=== PATIENT | male | born 1940 | race Hispanic/Latino ===

== ENCOUNTER 2019-04-19 09:49 | Emergency (ER) | payer MEDICARE, OTHER ==
[~2019-04-19] VITALS: Ht 160 cm; Wt 77.1 kg
[~2019-04-19 09:49] MED LIST: FAMOTIDINE20 MG PO; GLIMEPIRIDE2 MG PO; METFORMIN HCL500 MG PO; METRONIDAZOLE500 MG PO; PENTOXIFYLLINE400 MG PO; SIMVASTATIN40 MG PO; TAMSULOSIN HCL0.4 MG PO; ULTRAM 50MG50 MG PO
[2019-04-19] MEDS ORDERED: PANTOPRAZOLE 40 MG 10ML VIAL IV STA (10:40)
[2019-04-19] MEDS ORDERED: SODIUM CHLORIDE 0.9% 1000ML 1,000 ML IV STA (10:40)
[2019-04-19 11:46] LABS: BASOPHILS # (AUTO) 0.1 (0.0-0.1); BASOPHILS % 0.5 % (0.0-1.0); EOSINOPHILS # (AUTO) 0.1 (0.0-0.4); EOSINOPHILS % 1.1 % (0.0-6.0); HEMATOCRIT 46.7 % (38.2-49.6); HEMOGLOBIN 16.1 g/dL (14.0-18.0); LYMPHOCYTES % 19.2 % (18.0-39.1); MEAN CORPUSCULAR HEMOGLOBIN 29.7 pg (28-32); MEAN CORPUSCULAR HGB CONC 34.5 g/dL (31-35); MEAN CORPUSCULAR VOLUME 86.2 fL (81-99); MONOCYTES # (AUTO) 0.8 (0.2-0.8); MONOCYTES % 7.6 % (4.4-11.3); NEUTROPHILS # (AUTO) 7.4 (2.1-6.9); PLATELET COUNT 242 x10e3/uL (140-360); RED BLOOD COUNT 5.42 x10e6/uL (4.3-5.7); RED CELL DISTRIBUTION WIDTH 14.3 % (11.7-14.4)
[2019-04-19 12:12] LABS: BILIRUBIN,URINE NEGATIVE (NEGATIVE); CLARITY,URINE CLOUDY (CLEAR); COLOR,URINE YELLOW (YELLOW); KETONES,URINE NEGATIVE (NEGATIVE); LEUKOCYTE ESTERASE ,URINE SMALL (NEGATIVE); NITRITE,URINE POSITIVE (NEGATIVE); PROTEIN,URINE DIPSTICK 1+ (NEGATIVE); URINE UROBILINOGEN 1 mg/dL (0.2 - 1)
[2019-04-19 12:15] LABS: ALANINE AMINOTRANSFERASE 12 IU/L (0-55); ALBUMIN 3.8 g/dL (3.5-5.0); ALBUMIN/GLOBULIN RATIO 0.9 (0.8-2.0); ALKALINE PHOSPHATASE 84 IU/L (40-150); BLOOD UREA NITROGEN 10 mg/dL (7-26); BUN/CREATININE RATIO 13 (6-25); CALCIUM 9.9 mg/dL (8.4-10.2); CARBON DIOXIDE 25 mmol/L (22-29); CHLORIDE 100 mmol/L (98-107); CREATINE KINASE 46 IU/L (30-200); CREATININE, SERUM 0.79 mg/dL (0.72-1.25); EST GLOMERULAR FILTRATION RATE > 60 ML/MIN (60-); GLUCOSE 136 mg/dL (74-118); LIPASE 51 U/L (8-78); SODIUM 134 mmol/L (136-145)
[2019-04-19 12:30] LABS: BACTERIA,URINE MANY /HPF; EPITHELIAL CELLS,URINE MANY /LPF; WBC,URINE (MAN) >50 /HPF (0-5)
--- NOTE | 2019-04-19 13:53 | Diagnostic Imaging Report ---
EXAM: CT Abdomen and Pelvis WITH intravenous contrast INDICATION: Abdominal pain COMPARISON: None. TECHNIQUE: Abdomen and pelvis were scanned utilizing a multidetector helical scanner from the lung base to the pubic symphysis after administration of IV contrast. Coronal and sagittal reformations were obtained. Routine protocol was performed. Scan was performed during portal venous phase. IV CONTRAST: 100mL of Isovue 370 ORAL CONTRAST: Water RADIATION DOSE: Total DLP: 527.6 mGy*cm Dose modulation, iterative reconstruction, and/or weight based adjustment of the mA/kV was utilized to reduce the radiation dose to as low as reasonably achievable. FINDINGS: LOWER THORAX: Mitral annular calcifications and minimal scattered coronary artery calcifications. No focal lung base consolidation. HEPATOBILIARY: Diffuse hepatic steatosis. No focal liver lesions. No biliary ductal dilation. Unremarkable gallbladder. SPLEEN: No splenomegaly. PANCREAS: No focal masses or ductal dilatation. ADRENALS: No adrenal nodules. KIDNEYS/URETERS: Multiple simple cysts of both kidneys, measuring up to 6.7 cm on the left and 1.7 cm on the right. No renal calculi or hydronephrosis. No solid mass lesions. PELVIC ORGANS/BLADDER: Unremarkable. PERITONEUM / RETROPERITONEUM: No free air or fluid. LYMPH NODES: No lymphadenopathy. VESSELS: Scattered atherosclerotic calcifications of the nonaneurysmal abdominal aorta and major branches. GI TRACT: Wall thickening of the cecum and proximal ascending colon in the facility of several diverticuli. No significant pericolonic inflammatory changes. No free air. No fluid collection. Descending and sigmoid diverticulosis. Postoperative changes of prior anastomosis at the sigmoid colon. BONES AND SOFT TISSUES: No acute osseous injury. Grade 1 anterolisthesis at L4-5. Mild degenerative changes of the visualized spine. No suspicious lytic or blastic lesions. IMPRESSION: Cecal and proximal ascending colon wall thickening in the vicinity of several ascending colon diverticuli. Given the reported chronicity of symptoms and absence of pericolonic inflammatory changes, colonoscopy is recommended to assess for underlying mass lesion. Hepatic steatosis. Signed by: Ann Haji MD on 04/19/2019 1:49 PM
[2019-04-19] MEDS ORDERED: CEFTRIAXONE SOD 1 GM/NS 50 ML 50 ML IV ONE (14:30)
[2019-04-19 14:53] VITALS: BP 153/80
[2019-04-19] MEDS ORDERED: IOPAMIDOL 370 MG/ML 200 ML INFUS..BTL INJ ONE (22:50)
[2019-04-19] MEDS ORDERED: SODIUM CHLORIDE 0.9% 50ML 50 ML ONE (22:50)
== END 2019-04-19 15:11 | disposition home or self-care (01) ==
LOC: ER 09:49
DX: N30.00 Acute cystitis without hematuria (principal); I10 Essential (primary) hypertension; E11.9 Type 2 diabetes mellitus without complications; Z83.3 Family history of diabetes mellitus; Z82.49 Family history of ischemic heart disease and other diseases of the circulatory system; K63.89 Other specified diseases of intestine
CPT/HCPCS: 36415; 74177; 80053; 81001; 82550; 82553; 83690; 84484; 85025; 99284; C9113; J0696; J7030; Q9967

== ENCOUNTER 2020-01-17 18:37 | Observation (INO) | payer MEDICARE, OTHER ==
[~2020-01-17] VITALS: Ht 160 cm; Wt 77.1 kg
--- NOTE | 2020-01-17 19:55 | Emergency Department Note ---
History of Present Illnes History of Present Illness Chief Complaint: Abdominal Complaints History of Present Illness This is a 79 year old male SLIGHTLY BLOODY STOOL SINCE 10 AM THIS MORNING WHEN HE GOES TO THE BATHROOM, STATES HAS HAD THIS PROBLEM CHRONICALLY FOR OVER 5 YRS. STATES THAT HIS GI DOCTOR IS ROHIT. REPORTS SEEING GI 3 MONTHS AGO. states 10 episodes of blood in stool today, Historian: Patient Arrival Mode: Car Onset (how long ago): hour(s) (7) Location: rectal Quality: bleeding Radiation: Reports non-radiation Severity: mild Onset quality: sudden Duration (how long): hour(s) (7) Timing of current episode: intermittent Progression: waxing and waning Chronicity: recurrent Context: Denies recent illness, Denies recent surgery Relieving factors: none Exacerbating factors: none Associated symptoms: Reports denies other symptoms Treatments prior to arrival: none Past Medical/Family History Physician Review I have reviewed the patient's past medical and family history. Any updates have been documented here. Past Medical History Recent Fever: No Clinical Suspicion of Infectio: No New/Unexplained Change in Ment: No Past Medical History: Hypertension, Diabetes, Hyperlipedemia Other Surgery: PROSTATE SX Social History Smoking Cessation: Never Smoker Counseling Performed: No Alcohol Use: None Any Illegal Drug Use: No TB Exposure/Symptoms: No Physically hurt or threatened: No Other Last Tetanus: UNKNOWN Any Pre-Existing Lines (PICC,: No Is patient up to date on immun: Yes Last Flu: UTD Last Pneumovax: DENIES Review of Systems Review of Systems Constitutional: Reports no symptoms EENTM: Reports no symptoms Cardiovascular: Reports no symptoms Respiratory: Reports no symptoms Gastrointestinal: Reports as per HPI Genitourinary: Reports no symptoms Musculoskeletal: Reports no symptoms Integumentary: Reports no symptoms Neurological: Reports no symptoms Psychological: Reports no symptoms Endocrine: Reports no symptoms Hematological/Lymphatic: Reports no symptoms Physical Exam Related Data Allergies: Coded Allergies: No Known Allergies (Unverified , 04/19/19) Triage Vital Signs Vital Signs Date Time Temp Pulse Resp B/P (MAP) Pulse Ox O2 Delivery O2 Flow Rate FiO2 01/17/20 19:33 98.0 79 16 119/70 99 Vital signs reviewed: Yes Physical Exam CONSTITUTIONAL Constitutional: Present well-developed, Present well-nourished HENT HENT: Present normocephalic, Present atraumatic, Present oropharynx clear/moist, Present nose normal HENT L/R: Present left ext ear normal, Present right ext ear normal EYES Eyes: Reports PERRL, Reports conjunctivae normal NECK Neck: Present ROM normal PULMONARY Pulmonary: Present effort normal, Present breath sounds normal CARDIOVASCULAR Cardiovascular: Present regular rhythm, Present heart sounds normal, Present capillary refill normal, Present normal rate GASTROINTESTINAL Abdominal: Present soft, Present nontender, Present bowel sounds normal GENITOURINARY Genitourinary: Present exam deferred SKIN Skin: Present warm, Present dry MUSCULOSKELETAL Musculoskeletal: Present ROM normal NEUROLOGICAL Neurological: Present alert, Present oriented x 3, Present no gross motor or sensory deficits PSYCHOLOGICAL Psychological: Present mood/affect normal, Present judgement normal Results Laboratory Laboratory Laboratory Tests Test 01/17/20 22:07 01/17/20 19:00 Hemoglobin 12.7 g/dL (14.0-18.0) 14.2 g/dL (14.0-18.0) Hematocrit 38.9 % (38.2-49.6) 43.5 % (38.2-49.6) White Blood Count 10.56 x10e3/uL (4.8-10.8) Red Blood Count 4.75 x10e6/uL (4.3-5.7) Mean Corpuscular Volume 91.6 fL (81-99) Mean Corpuscular Hemoglobin 29.9 pg (28-32) Mean Corpuscular Hemoglobin Concent 32.6 g/dL (31-35) Red Cell Distribution Width 14.4 % (11.7-14.4) Platelet Count 275 x10e3/uL (140-360) Neutrophils (%) (Auto) 61.7 % (38.7-80.0) Lymphocytes (%) (Auto) 26.0 % (18.0-39.1) Monocytes (%) (Auto) 8.4 % (4.4-11.3) Eosinophils (%) (Auto) 2.8 % (0.0-6.0) Basophils (%) (Auto) 0.7 % (0.0-1.0) Neutrophils # (Auto) 6.5 (2.1-6.9) Lymphocytes # (Auto) 2.8 (1.0-3.2) Monocytes # (Auto) 0.9 (0.2-0.8) Eosinophils # (Auto) 0.3 (0.0-0.4) Basophils # (Auto) 0.1 (0.0-0.1) Absolute Immature Granulocyte (auto 0.04 x10e3/uL (0-0.1) Prothrombin Time 13.0 seconds (11.9-14.5) Prothromb Time International Ratio 0.93 Activated Partial Thromboplast Time 31.5 seconds (23.8-35.5) Sodium Level 136 mmol/L (136-145) Potassium Level 4.5 mmol/L (3.5-5.1) Chloride Level 103 mmol/L (98-107) Carbon Dioxide Level 24 mmol/L (22-29) Anion Gap 13.5 mmol/L (8-16) Blood Urea Nitrogen 22 mg/dL (7-26) Creatinine 0.76 mg/dL (0.72-1.25) Estimat Glomerular Filtration Rate > 60 ML/MIN (60-) BUN/Creatinine Ratio 29 (6-25) Glucose Level 112 mg/dL (74-118) Calcium Level 9.1 mg/dL (8.4-10.2) Total Bilirubin 0.3 mg/dL (0.2-1.2) Aspartate Amino Transf (AST/SGOT) 16 IU/L (5-34) Alanine Aminotransferase (ALT/SGPT) 13 IU/L (0-55) Alkaline Phosphatase 60 IU/L (40-150) Total Protein 7.0 g/dL (6.5-8.1) Albumin 4.0 g/dL (3.5-5.0) Globulin 3.0 g/dL (2.3-3.5) Albumin/Globulin Ratio 1.3 (0.8-2.0) Lab results reviewed: Yes Imaging Imaging results reviewed: Yes Impressions cr brain IMPRESSION: 1. No acute intracranial abnormalities. 2. Mild supratentorial chronic microvascular ischemic change. 3. Generalized cerebral volume loss. 4. 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 Signed by: Dr. Kieran Ramirez M.D. on 01/17/2020 10:52 PM Procedures 12 Lead ECG Interpretation ECG Interpretation : ECG: ECG 1 Status Controller: Interpreted by ED physician Date: Jan 17, 2020 Time: 22:04 Rhythm: sinus rhythm Rate: normal BPM: 68 QRS axis: left ST segments normal: No (early repolarization ) T waves normal: Yes Other findings: no other findings, early repolarization Clinical Impression: abnormal ECG Assessment & Plan Medical Decision Making MDM pt with rectal bleeding, no abd pain cbc, cmp, type and screen, pt/ptt ordered to eval for anemia, coagulopathy, electrolyte abnormality pt was in bathroom and passed out while having a bm, there is gross red blood in bm, pt has small contusion to head, ct brain ordered i spoke with dr brenner admit inpatient, i have placed a consult to dr katz gastroenterology Assessment & Plan Final Impression: (1) Lower GI bleed (2) Vasovagal syncope (3) Head contusion Depart Disposition: ADMITTED Last Vital Signs Date Time Temp Pulse Resp B/P (MAP) Pulse Ox O2 Delivery O2 Flow Rate FiO2 01/17/20 19:33 98.0 79 16 119/70 99 Home Meds Reported Medications Tramadol Hcl* (ULTRAM 50MG*) 50 Mg Tab, 50 MG PO BID, TAB 02/27/17 Tamsulosin Hcl (TAMSULOSIN HCL) 0.4 Mg Cap.er.24h, 0.4 MG PO DAILY 02/27/17 Simvastatin (SIMVASTATIN) 40 Mg Tablet, 40 MG PO 2100, #30 TAB 02/27/17 Pentoxifylline (PENTOXIFYLLINE) 400 Mg Tablet.er, 400 MG PO DAILY, #30 TAB 02/27/17 Metronidazole (METRONIDAZOLE) 500 Mg Tablet, 500 MG PO DAILY, TAB 02/27/17 Metformin Hcl (METFORMIN HCL) 500 Mg Tablet, 500 MG PO BID, #60 TAB 02/27/17 Glimepiride (GLIMEPIRIDE) 2 Mg Tablet, 2 MG PO TID, TAB 02/27/17 Famotidine (FAMOTIDINE) 20 Mg Tab, 40 MG PO DAILY, #30 TAB 02/27/17 SUHAIL KAISER MD Jan 17, 2020 19:54
[2020-01-17 20:01] LABS: BASOPHILS # (AUTO) 0.1 (0.0-0.1); BASOPHILS % 0.7 % (0.0-1.0); EOSINOPHILS # (AUTO) 0.3 (0.0-0.4); EOSINOPHILS % 2.8 % (0.0-6.0); HEMATOCRIT 43.5 % (38.2-49.6); HEMOGLOBIN 14.2 g/dL (14.0-18.0); LYMPHOCYTES # (AUTO) 2.8 (1.0-3.2); MEAN CORPUSCULAR HEMOGLOBIN 29.9 pg (28-32); MEAN CORPUSCULAR HGB CONC 32.6 g/dL (31-35); MEAN CORPUSCULAR VOLUME 91.6 fL (81-99); MONOCYTES # (AUTO) 0.9 (0.2-0.8); MONOCYTES % 8.4 % (4.4-11.3); NEUTROPHILS # (AUTO) 6.5 (2.1-6.9); NEUTROPHILS % 61.7 % (38.7-80.0); PLATELET COUNT 275 x10e3/uL (140-360); RED BLOOD COUNT 4.75 x10e6/uL (4.3-5.7); RED CELL DISTRIBUTION WIDTH 14.4 % (11.7-14.4)
[2020-01-17 20:06] LABS: INR 0.93
[2020-01-17 20:07] LABS: PARTIAL THROMBOPLASTIN TIME 31.5 seconds (23.8-35.5)
[2020-01-17 20:15] LABS: ALANINE AMINOTRANSFERASE 13 IU/L (0-55); ALBUMIN/GLOBULIN RATIO 1.3 (0.8-2.0); ALKALINE PHOSPHATASE 60 IU/L (40-150); ANION GAP 13.5 mmol/L (8-16); BLOOD UREA NITROGEN 22 mg/dL (7-26); BUN/CREATININE RATIO 29 (6-25); CALCIUM 9.1 mg/dL (8.4-10.2); CARBON DIOXIDE 24 mmol/L (22-29); CHLORIDE 103 mmol/L (98-107); CREATININE, SERUM 0.76 mg/dL (0.72-1.25); EST GLOMERULAR FILTRATION RATE > 60 ML/MIN (60-); GLUCOSE 112 mg/dL (74-118); POTASSIUM 4.5 mmol/L (3.5-5.1); SODIUM 136 mmol/L (136-145)
[2020-01-17] MEDS ORDERED: PANTOPRAZOLE 40 MG 10ML VIAL IV STA (21:53)
--- NOTE | 2020-01-17 22:10 | NUR ---
PATIENT RECIEVED FROM WAITING ROOM, PATIENT HAD UNWITNESSED SYNCOPIAL EPISODE IN RESTROOM, DR KAISER IN ROOM AND ADDING ADDITIONAL MEDICAL INTERVENTIONS
--- NOTE | 2020-01-17 22:14 | NUR ---
EKG DONE AND HANDED TO DR KAISER IN PERSON, REPEAT CBC AND THIRD PINK TOP WERE DRAWN FOR PATIENT BLOOD TYPE AND CROSS
--- NOTE | 2020-01-17 22:17 | NUR ---
PATIENT HAD BLOODY STOOL ALONG WITH CLOTS, MELENA, DR KAISER INFORMED AND WE TALKED ABOUT FURTHER RECOMMENDATIONS FOR MEDICAL INTERVENTION, DR KAISER ORDERED PROTONIX IV PUSH
--- NOTE | 2020-01-17 22:56 | Diagnostic Imaging Report ---
CT BRAIN WO HISTORY: Fall COMPARISON: None. Technique: Noncontrast axial scans were obtained from skull base to the vertex. Coronal and sagittal reconstructions obtained from the axial data. One or more of the following dose reduction techniques were used: Automated exposure control, adjustment of the mA and/or kV according to patient size, and/or utilization of iterative reconstruction technique. Beam hardening artifacts obscure some details. DISCUSSION: Scalp/Skull: Unremarkable. Brain sulci: Mildly prominent. Ventricles: Compensatory dilatation. Extra-axial spaces: No masses or fluid collections. Carotid and vertebral artery calcifications are present. Parenchyma: Mild bilateral deep white matter hypodensity is likely chronic microvascular ischemic change. There is a subtle old small cortical infarct in the right superior cerebellum. Otherwise, no masses, hemorrhage, or large vascular territory acute infarct. Dural sinuses: No abnormal densities. Sellar/Suprasellar region: Intact. Skull base: Intact. Incidental findings: Right ocular lens replacement. IMPRESSION: 1. No acute intracranial abnormalities. 2. Mild supratentorial chronic microvascular ischemic change. 3. Generalized cerebral volume loss. 4. 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 Signed by: Dr. Kieran Ramirez M.D. on 01/17/2020 10:52 PM
[2020-01-17 23:05] LABS: HEMATOCRIT 38.9 % (38.2-49.6); HEMOGLOBIN 12.7 g/dL (14.0-18.0)
[2020-01-17] MEDS ORDERED: DEXTROSE 50% SYRINGE 50 ML IV PRN (23:45)
[2020-01-17] MEDS ORDERED: SODIUM CHLORIDE 0.9% 1000ML 1,000 ML IV SCH (23:45)
[2020-01-18] VITALS (9 sets, daily range): BP systolic 120–129; BP diastolic 54–82
--- NOTE | 2020-01-18 01:00 | NUR ---
Received patient from ED. Patient is alert and verbal. No complain of pain at this time. Patient cannot remember home medications. Will call family member in AM. IV to right and left AC intact. Tele number [phone] Patient has abrasion in his forehead states it is old. Bed locked. Side rails up. Bed alarm on.
--- NOTE | 2020-01-18 02:02 | NUR ---
ED NURSE TRACI STATES PATIENT'S ABRASIONS ON THE FOREHEAD WERE FROM THE FALL AT ED.
--- NOTE | 2020-01-18 02:15 | NUR ---
NURSE TRACI GAVE RN PATIENT'S HOME MEDICATION CONTAINERS
--- NOTE | 2020-01-18 02:28 | NUR ---
PATIENT IS OFF THE UNIT FOR GI BLEED TEST IN [email or web address].
[2020-01-18] MEDS ORDERED: SIMVASTATIN40 MG PO (02:40)
[2020-01-18] MEDS ORDERED: AMLODIPINE BESY10 MG PO (02:41)
[2020-01-18] MEDS ORDERED: METFORMIN HCL500 MG PO (02:42)
--- NOTE | 2020-01-18 04:06 | NUR ---
PATIENT IS BACK FROM [facility]. ASSISTED TO BED. BED ALARM ON.
--- NOTE | 2020-01-18 04:35 | Diagnostic Imaging Report ---
Tagged-RBC GI Bleed Study Clinical information: 79-year-old female with grossly bloody stool.. Discussion: The patient's own red blood cells were labeled with 27 mCi of technetium-99m pertechnetate using the in vitro method (UltraTag). Dynamic images of the abdomen were obtained through 60 minutes. Distribution of tracer activity appears physiologic throughout the abdomen. No abnormal accumulation of tracer is seen within the gastrointestinal lumen. Impression: No scan evidence of active gastrointestinal bleeding at this time. Signed by: Dr. Sharron Rogers M.D. on 01/18/2020 4:31 AM
[2020-01-18 04:38] LABS: BACTERIA,URINE MODERATE /HPF; EPITHELIAL CELLS,URINE FEW /LPF
[2020-01-18 04:39] LABS: BILIRUBIN,URINE NEGATIVE (NEGATIVE); CLARITY,URINE CLEAR (CLEAR); COLOR,URINE YELLOW (YELLOW); KETONES,URINE 1+ (NEGATIVE); LEUKOCYTE ESTERASE ,URINE NEGATIVE (NEGATIVE); MUCUS,URINE MANY (RARE); NITRITE,URINE NEGATIVE (NEGATIVE); PROTEIN,URINE DIPSTICK NEGATIVE (NEGATIVE); URINE UROBILINOGEN 0.2 mg/dL (0.2 - 1)
--- NOTE | 2020-01-18 04:50 | NUR ---
Spoke with Prior Authorization Nurse regarding patient due HH. States she doesn't have the label at this time. She will check from the lab and draw blood as ordered.
[2020-01-18 07:07] LABS: HEMATOCRIT 36.3 % (38.2-49.6)
[2020-01-18] MEDS ORDERED: INSULIN REGULAR, HUMAN 100 UNIT/1 ML 3ML VIAL SQ SCH (07:30)
[2020-01-18] MEDS: PANTOPRAZOLE 40 MG 10ML VIAL IV SCH (09:36)
[2020-01-18] MEDS ORDERED: ONDANSETRON HCL INJ 2MG/ML 2ML 2 MG/ML VIAL IV PRN (09:45)
[2020-01-18] MEDS ORDERED: ACETAMINOPHEN 325 MG TAB PO PRN (09:45)
[2020-01-18] MEDS ORDERED: DEXTROSE 50% SYRINGE 50 ML IV PRN (09:45)
--- NOTE | 2020-01-18 10:11 | History and Physical ---
GENERAL OPHTHALMOLOGIST: Simeon Cee MD. CHIEF COMPLAINT: Rectal bleed. HISTORY OF PRESENT ILLNESS: This is a 79-year-old male, who came in with bloody stool, slightly bloody. The patient came to the hospital emergency room for evaluation. No significant drop of his hemoglobin or hematocrit. The patient does have history of diverticular disease. He has rectal bleed for quite some time. Had multiple endoscopies in the past. The patient is otherwise stable. PAST MEDICAL HISTORY: Hypertension, diabetes type 2, dyslipidemia, diverticular disease, and enlarged prostate. PAST SURGICAL HISTORY: Multiple endoscopy, colonoscopy and prostate surgery. SOCIAL HISTORY: The patient does not smoke or use alcohol. No regular drug. ALLERGIES: NO KNOWN ALLERGIES. HOME MEDICATIONS: The patient is on: 1. Norvasc. 2. Metformin. 3. Simvastatin. PHYSICAL EXAMINATION: VITAL SIGNS: Temperature is 98, blood pressure 124/66, pulse rate is 82, respirations 18. HEENT: Normocephalic and atraumatic. Pupils reactive. Anicteric. NECK: Supple grossly. PULMONARY: Clear. CARDIOVASCULAR: Regular rhythm. ABDOMEN: Soft and unremarkable. EXTREMITIES: No cyanosis or edema. NEUROLOGIC: No focal deficit. LABORATORY DATA: Sodium is 136, potassium 4.5, chloride 103, bicarb 24, BUN 22, creatinine 0.7 glucose 112. WBC is 10.5, hemoglobin 12, hematocrit 36, platelets 275. PT is 13, INR is 0.93. AST 16, ALT 13, alkaline phosphatase is 60, and total bilirubin 0.3. IMPRESSION: 1. Rectal bleed, most likely secondary to diverticular disease. 2. No abdominal pain. 3. Baseline hypertension. 4. Dyslipidemia. 5. Diabetes type 2, mild. PLAN: Resume some home medication. Protonix. The patient had a negative bleeding scan. We will obtain a CT abdomen and pelvis with contrast. Continue to monitor the patient closely. Get a CBC later on today. MD CHIDI Schwarz/MODL /[id number]
--- NOTE | 2020-01-18 11:04 | NUR ---
GASTROENTEROLOGY CONSULTATION REASON FOR CONSULT - RECTAL BLEED CONSULT REQUESTED BY- Dr. Goetz CHIEF COMPLAINT: Rectal bleed. HISTORY OF PRESENT ILLNESS: Patient is a 79-year-old male, who came in with bloody stool - reports bright red rectal bleeding that started about 2 days ago. The patient does have history of diverticular disease per many previous colonoscopies in the past. Patient reports of having some abd pain, denies any nausea, vomiting or hematemesis. Denies any fevers, chill, sob. ROS: all other systems negative unless mentioned above PAST MEDICAL HISTORY: Hypertension, diabetes type 2, dyslipidemia, diverticular disease PAST SURGICAL HISTORY: Multiple EGDs and colonoscopies and prostate surgery. SOCIAL HISTORY: The patient denies any smoking or alcohol use. Denies recreational drug use. ALLERGIES: NKDA HOME MEDICATIONS: 1. Norvasc. 2. Metformin. 3. Simvastatin. PHYSICAL EXAMINATION: VITAL SIGNS: Temperature is 98, blood pressure 124/66, pulse rate is 82, respirations 18. HEENT: Normocephalic and atraumatic. Pupils reactive. Anicteric. NECK: Supple grossly. PULMONARY: Clear. CARDIOVASCULAR: Regular rate and rhythm. ABDOMEN: Soft and unremarkable Bowel sounds active. EXTREMITIES: No cyanosis or edema. NEUROLOGIC: No focal deficit. LABORATORY DATA: Sodium is 136, potassium 4.5, chloride 103, bicarb 24, BUN 22, creatinine 0.7 glucose 112. WBC is 10.5, hemoglobin 12, hematocrit 36, platelets 275. PT is 13, INR is 0.93. AST 16, ALT 13, alkaline phosphatase is 60, and total bilirubin 0.3. IMPRESSION: 1. Rectal bleed - likely diverticular in nature - bleed scan negative 2. History of diverticular bleeds in the past PLAN: - Patient has been started on PPI - Plans for colonoscopy tomorrow w/Dr. Kevin. Prep started. Clear liquid. NPO after midnight. - Monitor H/H. The above plan has been discussed w/Dr. Kevin.
--- NOTE | 2020-01-18 11:23 | Diagnostic Imaging Report ---
EXAMINATION: LOWER LEG RIGHT INDICATION: Fall COMPARISON: None FINDINGS: 4 views of the tibia and fibula demonstrate no acute fracture or dislocation. Alignment is anatomic. Mild right knee degenerative changes. No substantial knee or ankle joint effusions. Bony proliferative changes of the patella. Soft tissues appear unremarkable. IMPRESSION: No acute osseous injury. Signed by: Ann Haji MD on 01/18/2020 11:19 AM
[2020-01-18] MEDS: INSULIN LISPRO 100 UNIT/1 ML 3ML VIAL SQ SCH ×3 (11:30→20:20)
--- NOTE | 2020-01-18 11:43 | Diagnostic Imaging Report ---
EXAM: CT Abdomen and Pelvis WITH intravenous contrast INDICATION: Rectal bleeding COMPARISON: CT abdomen and pelvis of 04/19/2019 TECHNIQUE: Abdomen and pelvis were scanned utilizing a multidetector helical scanner from the lung base to the pubic symphysis after administration of IV contrast. Coronal and sagittal reformations were obtained. Routine protocol was performed. Scan was performed during portal venous phase. IV CONTRAST: 100mL of Isovue 370 ORAL CONTRAST: None RADIATION DOSE: Total DLP: 683 mGy*cm Dose modulation, iterative reconstruction, and/or weight based adjustment of the mA/kV was utilized to reduce the radiation dose to as low as reasonably achievable. FINDINGS: LOWER THORAX: Mitral annular calcifications. No lung base consolidation. HEPATOBILIARY: Diffuse hepatic steatosis. No focal liver lesion. No biliary ductal dilation. Unremarkable gallbladder. SPLEEN: No splenomegaly. PANCREAS: No focal masses or ductal dilatation. ADRENALS: No adrenal nodules. KIDNEYS/URETERS: Bilateral simple appearing renal cysts measure up to 6.9 cm at the left lower pole and 1.8 cm at the right lower pole. No hydronephrosis or renal calculi. PELVIC ORGANS/BLADDER: Unremarkable. PERITONEUM / RETROPERITONEUM: No free air or fluid. LYMPH NODES: No lymphadenopathy. VESSELS: Moderate atherosclerotic calcifications of the nonaneurysmal abdominal aorta and major branches. GI TRACT: Surgical anastomosis at the sigmoid colon. Diverticulosis without CT evidence of diverticulitis. No abnormal bowel thickening. No bowel obstruction. Normal appendix. BONES AND SOFT TISSUES: No acute osseous injury. No suspicious lytic or blastic lesions. IMPRESSION: Diverticulosis without CT evidence of diverticulitis. Diffuse hepatic steatosis. Signed by: Ann Haji MD on 01/18/2020 11:40 AM
[2020-01-18] MEDS: LEVOFLOXACIN 500 MG TAB PO SCH (12:10)
[2020-01-18] MEDS ORDERED: PEG (High)/E-LYTE SOLN 4,000 ML BTL PO ONE (12:15)
[2020-01-18] MEDS ORDERED: TAMSULOSIN HCL 0.4 MG CAP PO ONE (12:15)
[2020-01-18] MEDS ORDERED: SODIUM CHLORIDE 0.9% 50ML 50 ML ONE (12:20)
[2020-01-18] MEDS ORDERED: IOPAMIDOL 370 MG/ML 200 ML INFUS..BTL INJ ONE (12:20)
[2020-01-18 14:52] LABS: BASOPHILS # (AUTO) 0.1 (0.0-0.1); BASOPHILS % 0.5 % (0.0-1.0); EOSINOPHILS # (AUTO) 0.1 (0.0-0.4); EOSINOPHILS % 1.1 % (0.0-6.0); HEMOGLOBIN 11.5 g/dL (14.0-18.0); LYMPHOCYTES # (AUTO) 1.9 (1.0-3.2); LYMPHOCYTES % 20.3 % (18.0-39.1); MEAN CORPUSCULAR HEMOGLOBIN 29.5 pg (28-32); MEAN CORPUSCULAR HGB CONC 32.9 g/dL (31-35); MEAN CORPUSCULAR VOLUME 89.7 fL (81-99); MONOCYTES # (AUTO) 0.8 (0.2-0.8); NEUTROPHILS # (AUTO) 6.3 (2.1-6.9); NEUTROPHILS % 68.7 % (38.7-80.0); PLATELET COUNT 227 x10e3/uL (140-360); RED CELL DISTRIBUTION WIDTH 14.5 % (11.7-14.4)
--- NOTE | 2020-01-18 18:10 | NUR ---
aware of bright red blood noted in stool.
--- NOTE | 2020-01-18 19:14 | NUR ---
Report given to oncoming nurse of patient's status. Sitting on recliner [id number] to time, person, place, situation. Respirations even and unlabored. Call light within reach.
[2020-01-18] MEDS: TAMSULOSIN HCL 0.4 MG CAP PO SCH (20:24)
--- NOTE | 2020-01-18 20:24 | NUR ---
PATIENT REFUSED TO GO TO BED WANTS TO SIT ON THE RECLINER. REFUSED BED ALARM ON WHEN IN BED. RISK EXPLAINED. PATIENT STILL REFUSED.
[2020-01-19] VITALS (8 sets, daily range): BP systolic 104–137; BP diastolic 52–73
--- NOTE | 2020-01-19 00:39 | NUR ---
PATIENT IS STILL NOT CLEAR. PATIENT CAN NOT DRINK ALL THE COLYTE. INSTRUCTIONS GIVEN TO BE NPO AT THIS TIME.
--- NOTE | 2020-01-19 05:00 | NUR ---
PATIENT REFUSED BATH X2.
[2020-01-19 05:58] LABS: BASOPHILS % 0.5 % (0.0-1.0); EOSINOPHILS # (AUTO) 0.1 (0.0-0.4); EOSINOPHILS % 0.8 % (0.0-6.0); HEMATOCRIT 27.2 % (38.2-49.6); HEMOGLOBIN 9.3 g/dL (14.0-18.0); LYMPHOCYTES # (AUTO) 1.3 (1.0-3.2); LYMPHOCYTES % 19.6 % (18.0-39.1); MEAN CORPUSCULAR HEMOGLOBIN 30.7 pg (28-32); MEAN CORPUSCULAR HGB CONC 34.2 g/dL (31-35); MEAN CORPUSCULAR VOLUME 89.8 fL (81-99); MONOCYTES # (AUTO) 0.6 (0.2-0.8); MONOCYTES % 9.8 % (4.4-11.3); NEUTROPHILS # (AUTO) 4.4 (2.1-6.9); PLATELET COUNT 199 x10e3/uL (140-360); RED BLOOD COUNT 3.03 x10e6/uL (4.3-5.7); RED CELL DISTRIBUTION WIDTH 14.3 % (11.7-14.4)
[2020-01-19 06:21] LABS: ANION GAP 10.7 mmol/L (8-16); BLOOD UREA NITROGEN 13 mg/dL (7-26); BUN/CREATININE RATIO 19 (6-25); CARBON DIOXIDE 27 mmol/L (22-29); CHLORIDE 104 mmol/L (98-107); CREATININE, SERUM 0.67 mg/dL (0.72-1.25); EST GLOMERULAR FILTRATION RATE > 60 ML/MIN (60-); GLUCOSE 162 mg/dL (74-118); POTASSIUM 3.7 mmol/L (3.5-5.1); SODIUM 138 mmol/L (136-145)
[2020-01-19] MEDS: INSULIN LISPRO 100 UNIT/1 ML 3ML VIAL SQ SCH ×4 (07:30→20:59)
--- NOTE | 2020-01-19 08:50 | NUR ---
Patient scheduled for colonoscopy. Paged to notify patient's last BM was at 2AM. Patient reports being "bloody"
[2020-01-19] MEDS: PANTOPRAZOLE 40 MG 10ML VIAL IV SCH (09:03)
[2020-01-19] MEDS ORDERED: DIPHENHYDRAMINE HCL INJ 50 MG/ML VIAL IV PRN (09:15)
--- NOTE | 2020-01-19 09:50 | NUR ---
Repaged to notify bright red blood noted with blood moderate blood clots. Awaiting call back. Jayla RN (OR nurse) aware.
--- NOTE | 2020-01-19 11:08 | NUR ---
Spoke to Dr. Goetz regarding status. Dr. Goetz states to keep obs until after colonoscopy today. If pt stays after colonoscopy, Dr. Goetz will put in inpatient order.
[2020-01-19] MEDS: IRON SUCROSE 100 MG in SODIUM CHLORIDE 0.9% 100 ML 100 ML IV SCH (12:45)
[2020-01-19] MEDS: LEVOFLOXACIN 500 MG TAB PO SCH (13:00)
--- NOTE | 2020-01-19 17:30 | NUR ---
Taken for colonoscopy. No s/s of acute distress noted
[2020-01-19] MEDS ORDERED: PROPOFOL IV EMULSION 10 MG/ML 20 ML VIAL ONE (18:59)
--- NOTE | 2020-01-19 19:30 | NUR ---
Report given to oncoming nurse of patient's status. Resting in bed. No s/s of acute distress noted. Side rails upx2, call light within reach.
--- NOTE | 2020-01-19 20:00 | NUR ---
pt received. no ss of distress noted. no co pain. tele in place. will cont to follow poc. call pineda within reach.
[2020-01-19] MEDS: TAMSULOSIN HCL 0.4 MG CAP PO SCH (20:59)
[2020-01-20 00:10] VITALS: BP 96/41
--- NOTE | 2020-01-20 04:26 | NUR ---
pt sleeping at time. no ss of distress noted. call pineda within reach.
[2020-01-20 05:21] VITALS: BP 104/71
--- NOTE | 2020-01-20 07:01 | NUR ---
CHANGE OF SHIFT REPORT RECEIVED FROM PM NURSE. PT SLEEPING, RESPIRATIONS EVEN AND NONLABORED. NO S/S DISTRESS.
[2020-01-20] MEDS: INSULIN LISPRO 100 UNIT/1 ML 3ML VIAL SQ SCH (07:30)
[2020-01-20 08:08] VITALS: BP 110/59
[2020-01-20 08:35] VITALS: BP 110/59
[2020-01-20] MEDS: LEVOFLOXACIN 500 MG TAB PO SCH (09:45)
[2020-01-20] MEDS: PANTOPRAZOLE 40 MG 10ML VIAL IV SCH (09:48)
[2020-01-20] MEDS: IRON SUCROSE 100 MG in SODIUM CHLORIDE 0.9% 100 ML 100 ML IV SCH (09:59)
--- NOTE | 2020-01-20 11:06 | Discharge Summary ---
FINAL DIAGNOSES: 1. Rectal bleed, secondary to diverticular disease. Bleeding has stopped. Status post colonoscopy. No sign of infection. No gross bleed. Internal hemorrhoids. 2. Urinary tract infection with prostatitis, enlarged prostate. 3. Acute blood loss anemia, stable. 4. Baseline hypertension and diabetes. SUMMARY: The patient is a 79-year-old male with rectal bleed. He has also had urinary tract infection. The patient is otherwise stable. No gross bleed for the past 2 days. The patient did undergo colonoscopy. There was no bleed. There were internal hemorrhoids. There was diverticular disease as previously. The patient is otherwise stable. He did receive iron infusion. He will go home today with ferrous sulfate, Colace. Hold off blood pressure medication since his blood pressure is low. No Norvasc. The patient may continue with his usual home diet. We will give the patient Levaquin 250 mg daily for 7 days. He will take Flomax 0.4 mg in the evening for his prostate. The patient is otherwise stable. He is doing well. No urinary urgency like previously as the patient complained. The GI bleeding scan was negative. The patient is otherwise stable. He will follow up with Dr. Simeon Cee in approximately 1 to 2 weeks and his family physician in approximately 1 to 2 weeks. The patient is otherwise stable, discharged home today. MD CHIDI Schwarz/ELSLIE /[id number]
== END 2020-01-20 13:31 | disposition home or self-care (01) ==
LOC: ER 18:37 → INTOOBSV 01-18 00:44 → ERHOLD 01-18 00:44 → MED/SURG2 01-18 01:10
PROVIDERS: ADMIT Internal Medicine; ATTEND Internal Medicine
DX: K57.31 Diverticulosis of large intestine without perforation or abscess with bleeding (principal); D62 Acute posthemorrhagic anemia; I10 Essential (primary) hypertension; E11.9 Type 2 diabetes mellitus without complications; N39.0 Urinary tract infection, site not specified; N40.0 Benign prostatic hyperplasia without lower urinary tract symptoms; K64.8 Other hemorrhoids
CPT/HCPCS: 36415 ×4; 45380; 45384; 70450; 73590; 74177; 78278; 80048; 80053; 81001; 82948 ×3; 85014 ×2; 85018 ×2; 85025 ×3; 85610; 85730; 86850; 86900; 87635; 88305; 93005; 99284; A9512 ×2; C9113 ×4; G0378 ×3; J1200; J1756; J1817; J2704; J7030; Q9967

== ENCOUNTER → 2022-02-27 | Outpatient (CLI) | payer OTHER ==
[~2022-02-27] MED LIST changes: +AMLODIPINE BESY10 MG PO
== END ==
LOC: MRI 07:54
PROVIDERS: ATTEND Internal Medicine
DX: S09.90XA Unspecified injury of head, initial encounter (principal); S13.9XXD Sprain of joints and ligaments of unspecified parts of neck, subsequent encounter
CPT/HCPCS: 70551; 72050

== ENCOUNTER → 2022-04-05 | Outpatient (CLI) | payer OTHER ==
[~2022-04-05] MED LIST changes: +GADOBENATE DIMEGLUMINE 1 ML IV ONE
[2022-04-05 09:18] LABS: CREATININE, SERUM 0.78 mg/dL (0.72-1.25)
== END ==
LOC: NM 07:59
PROVIDERS: ATTEND Urology
DX: R97.20 Elevated prostate specific antigen [PSA] (principal)
CPT/HCPCS: 36415; 72197; 78306; 82565; 84520; A9503

== ENCOUNTER → 2022-10-09 | Outpatient (CLI) | payer OTHER ==
[~2022-10-09] MED LIST changes: -GADOBENATE DIMEGLUMINE 1 ML IV ONE
== END ==
LOC: RAD 15:51
PROVIDERS: ATTEND Internal Medicine Cardiovascular Disease
DX: A09 Infectious gastroenteritis and colitis, unspecified (principal)
CPT/HCPCS: 74019

== ENCOUNTER → 2023-02-14 | Outpatient (CLI) | payer OTHER | LOC: NM 08:03 | PROVIDERS: ATTEND Internal Medicine | DX: R94.5 Abnormal results of liver function studies (principal) | CPT/HCPCS: 78227; A9537 ==

== ENCOUNTER → 2023-05-13 | Outpatient (REF) | payer OTHER | LOC: RAD 09:06 | PROVIDERS: ATTEND Internal Medicine | DX: N20.0 Calculus of kidney (principal) | CPT/HCPCS: 74018 ==

== ENCOUNTER → 2024-09-14 | Outpatient (REF) | payer OTHER, MEDICARE | LOC: DX 11:48 | PROVIDERS: ATTEND Internal Medicine | DX: Z13.820 Encounter for screening for osteoporosis (principal) | CPT/HCPCS: 77080 ==